=== PATIENT | female | born 1990 | race Caucasian/White ===

== ENCOUNTER 2021-03-26 13:55 | Outpatient (CLI) | payer OTHER, SELFPAY ==
[2021-03-26 14:40] LABS: Basophils Percent Auto 0.5 % (0.2-1.2); Hematocrit 34.5 % (37.0-47.0); Hemoglobin 11.7 g/dL (12.0-15.0); Immature Granulocyte Absolute 0.02 K/mm3 (0.00-0.031); Immature Granulocyte Percent A 0.5 % (0-0.5); Lymphocytes Absolute Auto 1.01 K/mm3 (0.9-3.2); Lymphocytes Percent Auto 25.3 % (18.3-44.2); Mean Corpuscular HGB Conc 33.9 g/dl (32-36); Mean Corpuscular Hemoglobin 30.4 pg (26-34); Mean Corpuscular Volume 89.6 fl (80-100); Mean Platelet Volume 9.1 fl (7.4-10.4); Monocytes Absolute Auto 0.4 K/mm3 (0.1-0.6); Neutrophils Absolute Auto 2.5 K/mm3 (1.3-6.7); Neutrophils Percent Auto 63.7 % (45.5-73.1); Platelet Count Result 204 k/mm3 (150-375); Red Blood Count 3.85 M/mm3 (4.2-5.4); Red Cell Distribution Width 13.4 % (11.5-14.5)
[2021-03-26 14:49] LABS: Add Urine Microscopic? YES; Appearance Urine Clear (Clear); Bilirubin Urine Negative (Negative); Blood Urine Negative (Negative); Color Urine Yellow (Yellow); Glucose Urine UA Negative (Negative); Ketones Urine Negative (Negative); Leukocyte Esterase Ur 3+ LEU/UL (NEGATIVE); Mucus Urine Few /lpf; Nitrate Urine Negative (Negative); Protein Urine 1+ mg/dL (Negative); Specific Grav Ur 1.027 (1.001-1.035); Squamous Epithelial Cell Urine Many /hpf (Few)
[2021-03-26 15:42] LABS: Hepatitis B Surface Antigen Negative (Negative); Rubella IgG Antibody 12.5 IU/ML
[2021-03-26 15:57] LABS: Hepatitis C Virus Antibody Negative (Negative)
== END 2021-03-26 13:56 | disposition home or self-care (01) ==
PROVIDERS: Visit Provider Obstetrics & Gynecology
DX: Z34.90 Encounter for supervision of normal pregnancy, unspecified, unspecified trimester (principal); Z3A.00 Weeks of gestation of pregnancy not specified
CPT/HCPCS: 36415; 81001; 84443; 85025; 86762; 86803; 87086; 87340

== ENCOUNTER 2021-07-05 10:32 | Outpatient (RCR) | payer OTHER, SELFPAY ==
[2021-07-02 09:44] LABS: Basophils Percent Auto 0.3 % (0.2-1.2); Eosinophils Absolute Auto 0.1 K/mm3 (0-0.3); Eosinophils Percent Auto 0.9 % (0-4.4); Hematocrit 31.8 % (37.0-47.0); Hemoglobin 10.6 g/dL (12.0-15.0); Immature Granulocyte Absolute 0.09 K/mm3 (0.00-0.031); Immature Granulocyte Percent A 1.1 % (0-0.5); Lymphocytes Absolute Auto 1.05 K/mm3 (0.9-3.2); Lymphocytes Percent Auto 13.2 % (18.3-44.2); Mean Corpuscular HGB Conc 33.3 g/dl (32-36); Mean Corpuscular Hemoglobin 30.7 pg (26-34); Mean Corpuscular Volume 92.2 fl (80-100); Mean Platelet Volume 9.1 fl (7.4-10.4); Monocytes Absolute Auto 0.4 K/mm3 (0.1-0.6); Monocytes Percent Auto 4.9 % (2.6-8.5); Neutrophils Absolute Auto 6.4 K/mm3 (1.3-6.7); Neutrophils Percent Auto 79.6 % (45.5-73.1); Platelet Count Result 199 k/mm3 (150-375); Red Blood Count 3.45 M/mm3 (4.2-5.4)
[2021-07-02 10:01] LABS: Glucose 1 Hour PP 50gm Dose 156 mg/dL
[2021-07-05] MEDS: RHO(D) IMMUNE GLOBULIN 300 MCG/2 ML SYRINGE IM (07:33)
== END 2021-09-30 23:59 | disposition home or self-care (01) ==
LOC: ANHLAB 10:32
PROVIDERS: Visit Provider Obstetrics & Gynecology
DX: Z29.13 Encounter for prophylactic Rho(D) immune globulin (principal); O36.0190 Maternal care for anti-D [Rh] antibodies, unspecified trimester, not applicable or unspecified; Z3A.00 Weeks of gestation of pregnancy not specified
CPT/HCPCS: 36415; 82947; 85025; 85461; 90384; 96372; J2790

== ENCOUNTER 2021-07-08 07:40 | Outpatient (CLI) | payer OTHER, SELFPAY ==
[2021-07-08 08:14] LABS: Glucose Fasting Gestational 85 mg/dL (>/=95)
[2021-07-08 09:37] LABS: Glucose 1 Hour Gest 136 mg/dL (>/=180)
[2021-07-08 11:46] LABS: Glucose 3 Hour Gest 90 mg/dL (>/=140)
[2021-07-08 11:46] LABS: Glucose 2 Hour Gest 108 mg/dL (>/= 155)
== END 2021-07-08 07:41 | disposition home or self-care (01) ==
LOC: ANHLAB 07:42
PROVIDERS: Visit Provider Obstetrics & Gynecology
DX: O99.810 Abnormal glucose complicating pregnancy (principal); Z3A.00 Weeks of gestation of pregnancy not specified
CPT/HCPCS: 36415; 82951; 82952

== ENCOUNTER 2021-08-02 09:29 | Outpatient (CLI) | payer OTHER, SELFPAY ==
[2021-08-02 09:45] LABS: Basophils Absolute Auto 0.02 K/mm3 (0.00-0.10); Basophils Percent Auto 0.3 % (0.0-1.0); Eosinophils Absolute Auto 0.06 K/mm3 (0.02-0.50); Eosinophils Percent Auto 0.8 % (1.0-6.0); Hematocrit 33.1 % (35.0-49.0); Hemoglobin 11.1 g/dL (12.0-15.0); Immature Granulocyte Percent A 1.4 % (0.0-0.0); Lymphocytes Absolute Auto 0.98 K/mm3 (1.10-4.50); Lymphocytes Percent Auto 13.9 % (18.0-42.0); Mean Corpuscular HGB Conc 33.5 g/dL (32.0-36.0); Mean Corpuscular Hemoglobin 31.2 pg (27.0-31.0); Mean Platelet Volume 9.4 fl (9.2-11.8); Monocytes Percent Auto 5.7 % (2.0-11.0); Neutrophils Absolute Auto 5.5 K/mm3 (1.7-7.2); Neutrophils Percent Auto 77.9 % (50.0-70.0); Platelet Count Result 183 K/mm3 (150-420); Red Blood Count 3.56 M/mm3 (4.20-5.40); Red Cell Distribution Width 13.7 % (11.6-14.4); White Blood Count 7.1 K/mm3 (4.8-10.8)
[2021-08-02 10:52] LABS: HIV 1 P24 AG Negative (Negative); HIV 1/2 AB Negative (Negative)
[2021-08-05 14:51] LABS: RPR Screen Non-Reactive (Non-Reactive)
== END 2021-08-02 09:30 | disposition home or self-care (01) ==
LOC: CHSLAB 09:32
PROVIDERS: PCP Obstetrics & Gynecology; Visit Provider Obstetrics & Gynecology
DX: Z34.90 Encounter for supervision of normal pregnancy, unspecified, unspecified trimester (principal)
CPT/HCPCS: 36415; 85025; 86592; 86703

== ENCOUNTER 2021-09-11 23:20 | Inpatient (IN) | payer OTHER, SELFPAY ==
[2021-09-12] VITALS (105 sets, daily range): BP systolic 99–150; BP diastolic 53–97; PULSE 44–91; RESP 16–18; TEMP 36.3–36.9; O2SAT 80–100; BMI 26.7
[2021-09-12 00:48] LABS: Basophils Percent Auto 0.4 % (0.2-1.2); Eosinophils Absolute Auto 0.1 K/mm3 (0-0.3); Eosinophils Percent Auto 0.7 % (0-4.4); Hematocrit 34.2 % (37.0-47.0); Hemoglobin 11.2 g/dL (12.0-15.0); Immature Granulocyte Percent A 1.3 % (0-0.5); Lymphocytes Absolute Auto 1.38 K/mm3 (0.9-3.2); Lymphocytes Percent Auto 18.4 % (18.3-44.2); Mean Corpuscular HGB Conc 32.7 g/dl (32-36); Mean Corpuscular Hemoglobin 30.4 pg (26-34); Mean Corpuscular Volume 92.7 fl (80-100); Mean Platelet Volume 10.2 fl (7.4-10.4); Monocytes Absolute Auto 0.4 K/mm3 (0.1-0.6); Monocytes Percent Auto 5.7 % (2.6-8.5); Neutrophils Absolute Auto 5.5 K/mm3 (1.3-6.7); Neutrophils Percent Auto 73.5 % (45.5-73.1); Platelet Count Result 180 k/mm3 (150-375); Red Blood Count 3.69 M/mm3 (4.2-5.4); Red Cell Distribution Width 14.1 % (11.5-14.5); White Blood Count 7.5 K/mm3 (4.5-10.0)
--- NOTE | 2021-09-12 00:49 | LDADM ---
This patient, Gabby Bazzi, was admitted to Labor/Delivery/Recovery 105 on 09/11/21 at 23:20. Plans for labor, pain management and were discussed with patient. Patient/family oriented to hospital policies and general routines including ID bracelet, bed and alarms, visiting hours, pain management, procedures, bathroom and other care routines, personal items, smoking policy, room service/diet and guest tray routines, security routines, and visiting hours. Patient/Family are encouraged to report perceived risks to care and to ask questions if they do not understand what they are told or what they should do. See OBIX for further documentation.
[2021-09-12] MEDS: OXYTOCIN 30 UNITS/NS 500 ML 30 UNITS/500 ML BAG IV CONT (01:17)
[2021-09-12] MEDS: LACTATED RINGERS 1,000 ML 125 ML IV CONT ×2 (01:18→05:24)
--- NOTE | 2021-09-12 03:33 | WPDANESEPP ---
Anes - Eval Pre Procedure Procedure: labor epidural Date/Time: 09/12/21 03:33 Surgeon: ryan Preop Diagnosis: pain during labor Pre Op Diagnosis: SROM Patient Data Age: 31 Gender: F Height: 1.7 m Weight: 77.5 kg Last Vital Signs Pulse 57 L 09/12/21 03:30 BP 118/78 09/12/21 03:30 O2 Del Method Room Air 09/12/21 00:48 Allergies Allergy/AdvReac Type Severity Reaction Status Date / Time No Known Allergies Allergy Verified 09/10/21 10:22 Home Medications Medication Instructions Recorded Confirmed Type cholecalciferol (vitamin D3) 25 25 mcg PO DAILY 09/05/21 09/05/21 History mcg (1,000 unit) capsule docusate sodium 100 mg capsule 100 mg PO DAILY 09/05/21 09/05/21 History iron,carbonyl 65 mg-vitamin C 125 1 tablet PO HS 09/05/21 09/05/21 History mg tablet,delayed release (Vitron-C) prenat.vits,norman,qmc-ivni-doirm 1 tablet PO HS 09/05/21 09/05/21 History Laboratory Tests 09/12/21 09/12/21 00:12 00:12 WBC 7.5 K/mm3 K/mm3 (4.5-10.0) RBC 3.69 M/mm3 L M/mm3 (4.2-5.4) Hgb 11.2 g/dL L g/dL (12.0-15.0) Hct 34.2 % L % (37.0-47.0) MCV 92.7 fl fl (80-100) MCH 30.4 pg pg (26-34) MCHC 32.7 g/dl g/dl (32-36) RDW 14.1 % % (11.5-14.5) Plt Count 180 k/mm3 k/mm3 (150-375) MPV 10.2 fl fl (7.4-10.4) Immature Gran % (Auto) 1.3 % H % (0-0.5) Neut % (Auto) 73.5 % H % (45.5-73.1) Lymph % (Auto) 18.4 % % (18.3-44.2) [place] % (Auto) 5.7 % % (2.6-8.5) Eos % (Auto) 0.7 % % (0-4.4) Baso % (Auto) 0.4 % % (0.2-1.2) Lymph # (Auto) 1.38 K/mm3 K/mm3 (0.9-3.2) [place] # (Auto) 0.4 K/mm3 K/mm3 (0.1-0.6) Eos # (Auto) 0.1 K/mm3 K/mm3 (0-0.3) Baso # (Auto) 0.0 K/mm3 K/mm3 (0.0-0.1) Abs Immat Gran (auto) 0.10 K/mm3 H K/mm3 (0.00-0.031) Absolute Neuts (auto) 5.5 K/mm3 K/mm3 (1.3-6.7) Absolute Nucleated RBC 0.0 K/mm3 K/mm3 (0.0-0.012) Nucleated RBC % 0.0 % % (0.0-0.2) RPR Pending Patient hx anesthesia problems: none Family hx anesthesia problems: none Results Review: All pre-operative results and documents have been reviewed as part of the pre-operative evaluation. [facility] Past Medical History Medical History Vaginal delivery Surgical History Surgical History [place] teeth removed Family History Family History Mother Diabetes mellitus Hypertension Father Hypertension Sibling Hypertension Social History Social History Smoking status: Never smoker Alcohol intake: current Substance use: never Spiritual care concerns: No Exam Day of Procedure 09/12/21 03:33
[2021-09-12] MEDS: AMPICILLIN 2 GM/NS 100 ML 2 GM/100 ML BAG IVPB (04:50)
[2021-09-12 07:25] LABS: Rapid Plasma Reagin Non-Reactive (NonReactive)
[2021-09-12] MEDS: ONDANSETRON INJ 4 MG/2 ML VIAL IV PUSH (08:08)
[2021-09-12] MEDS: OXYTOCIN 30 UNITS/NS 500 ML 30 UNITS/500 ML BAG 125 UNITS IV CONT (09:44)
--- NOTE | 2021-09-12 10:17 | PM.IMHP ---
H&P: HPI History of Present Illness Date/Time: 09/12/21 10:17 Chief Complaint: Pt at 39 weeks based on EDC of 09/18/2021 by LMP 12/12/20 consistent with 13 week ultrasound. PNC uncomplicated. She presented with complaints of questionable leaking starting at 10:00 a.m. on 09/11 light leaking. It continued throughout the day and she presented to labor and delivery the evening of 727 and was confirmed rupture membranes. She denied any fevers denies any regular contractions. Patient was admitted for premature rupture of membranes. Contractions irregular. Labs reviewed. GBS neg. Review of Systems Review of Systems: All systems reviewed & are unremarkable except as noted in HPI and below Constitutional: Constitutional: Reports no additional constitutional complaints and Denies headache(s) Eyes: Eyes: Denies spots in vision ENT: Reports system reviewed and no additional complaints, except as documented and Denies headache(s) Cardiovascular: Cardiovascular: Denies chest pain and Denies dyspnea Respiratory: Respiratory: Denies dyspnea Gastrointestinal: Gastrointestinal: Reports no additional gastrointestinal complaints Genitourinary: Genitourinary: Reports amenorrhea Musculoskeletal: Musculoskeletal: Reports no additional musculoskeletal complaints Integumentary/Breasts: Skin/Breast: Denies breast mass and Denies rash Neurologic: Denies headache(s) Psychiatric: Psychiatric: Reports no additional psychiatric complaints [facility] Past Medical History Medical History (Updated 09/13/21 @ 07:29 by Peter Driscoll MD) Vaginal delivery Surgical History Surgical History [place] teeth removed Family History Family History Mother Diabetes mellitus Hypertension Father Hypertension Sibling Hypertension Social History Social History Smoking status: Never smoker Alcohol intake: current Substance use: never Spiritual care concerns: No Meds Home Medications and Allergies Home Medications Medication Instructions Recorded Confirmed Type cholecalciferol (vitamin D3) 25 25 mcg PO DAILY 09/05/21 09/05/21 History mcg (1,000 unit) capsule docusate sodium 100 mg capsule 100 mg PO DAILY 09/05/21 09/05/21 History iron,carbonyl 65 mg-vitamin C 125 1 tablet PO HS 09/05/21 09/05/21 History mg tablet,delayed release (Vitron-C) prenat.vits,norman,vql-vyqx-wcgeg 1 tablet PO 09/05/21 09/05/21 History Allergies Allergy/AdvReac Type Severity Reaction Status Date / Time No Known Allergies Allergy Verified 09/10/21 10:22 Vital Signs Vital Signs - 24 hr 09/12/21 00:48 09/12/21 01:52 09/12/21 02:00 Temperature 97.5 F L Pulse Rate 70 72 Blood Pressure 111/68 112/76 Pulse Oximetry Oxygen Delivery Room Air 09/12/21 02:15 09/12/21 02:30 09/12/21 02:45 Temperature Pulse Rate 72 66 61 Blood Pressure 115/73 107/60 122/67 Pulse Oximetry Oxygen Delivery 09/12/21 03:01 09/12/21 03:15 09/12/21 03:30 Temperature Pulse Rate 65 55 L 57 L Blood Pressure 101/55 L 107/67 118/78 Pulse Oximetry Oxygen Delivery 09/12/21 03:45 09/12/21 04:01 09/12/21 04:29 Temperature Pulse Rate 66 70 Blood Pressure 121/71 114/74 Pulse Oximetry 99 Oxygen Delivery 09/12/21 04:32 09/12/21 04:34 09/12/21 04:36 Temperature Pulse Rate 72 77 Blood Pressure 115/97 H 150/89 H Pulse Oximetry 100 Oxygen Delivery 09/12/21 04:38 09/12/21 04:39 09/12/21 04:40 Temperature Pulse Rate 89 72 Blood Pressure 129/86 126/76 Pulse Oximetry 100 Oxygen Delivery 09/12/21 04:43 09/12/21 04:44 09/12/21 04:45 Temperature Pulse Rate 66 73 69 Blood Pressure 126/72 126/73 116/72 Pulse Oximetry 100 Oxygen Delivery 09/12/21 04:46 09/12/21 04:48 09/12/21 04:49 Temperature
--- NOTE | 2021-09-12 10:18 | PM.OBPRVD ---
OB - Delivery Note Procedure Delivery date: 09/12/21 Procedure: Spontaneous vaginal delivery Events: Other ( premature rupture of membranes) Delivery augmentation: Pitocin Delivery monitor: External FHT Route of delivery: Laceration Description: Perineal - 2nd Degree Delivery repair: vicryl ( 3 0 Vicryl) Specimen: No Quantitative Blood Loss (ml): 200 Anesthesia type: Local Disposition: Floor Narrative: Patient admitted to Labor and delivery after confirmation of rupture of membranes. She had Pitocin augmentation started. She progressed into active labor. She had an uncomplicated vaginal delivery. Baby Date of : 09/12/21 Time of : 09:04 Weeks of gestation at delivery: 39 gender: Female Weight (pounds): 7 Weight (ounces): 14 presentation: vertex position: Right Occiput Anterior Placenta delivery description: Spontaneous Cord Vessel Description: 3 Vessels and Other ( short cord) score one minute: 9 score five minutes: 9 AMG Delivery Billing Delivery Delivery: Delivery Charge
[2021-09-12] MEDS: WITCH HAZEL 40 PADS 1 PAD TOPICAL (11:52)
[2021-09-12] MEDS: BENZOCAINE 20% AER SPR (*SP) 56 GM CAN 1 SPRAY TOPICAL (11:53)
--- NOTE | 2021-09-12 12:10 | OBPPTRN ---
Patient transferred to post room #281 via wheelchair. Support person present. Oriented to unit, room, information board, rooming in, admission packet and security measures. Patient verbalizes understanding.
[2021-09-12] MEDS: IBUPROFEN 600 MG TABLET PO ×2 (16:19→22:50)
[2021-09-12] MEDS: DOCUSATE SODIUM 100 MG CAPSULE PO (16:20)
[2021-09-13 04:55] LABS: Hematocrit 30.8 % (37.0-47.0); Hemoglobin 10.2 g/dL (12.0-15.0)
--- NOTE | 2021-09-13 07:52 | PM.OBPNVD ---
OB - PN: Subj Subjective Date/time seen: 09/13/21 07:52 Patient comments: pain well controlled, tolerating diet and other (Decreasing lochia.) baby status: doing well Narrative: She is supplementing OB - PN: Obj Data Labs CBC & Chem 7: 09/13/21 04:03 Labs: Laboratory Results - last 24 hr 09/12/21 09/13/21 09/13/21 00:12 04:03 04:03 Hgb 10.2 L Hct 30.8 L Blood Type A Negative Antigen Identification Cancelled ALECIA, IgG Interpret Not Performed ALECIA, Poly Interpret Negative ALECIA, Complement Interp Not Performed OB - PN A/P Plan day: 1 Plan: routine care Comments: Patient doing well. Normal exam. She request discharge. Discharge to home when baby ready. Discharge precautions discussed. Time Spent With Patient Time: Total time spent is greater than 50% in coordination of care (as documented) at patient's floor/unit and/or counseling patient: Exam Psych: Affect: normal affect Other: Abd: fundus firm below umbilicus, nontender Perineum: healing Ext: nontender
[2021-09-13 08:15] VITALS: BP 113/78; PULSE 69; RESP 18; TEMP 37.4; O2SAT 97
[2021-09-13] MEDS: MULTIVIT/MIN/PREN/FOL AC/IRON TABLET 1 TAB PO (09:38)
[2021-09-13] MEDS: RHO(D) IMMUNE GLOBULIN 300 MCG/2 ML SYRINGE IM (10:06)
--- NOTE | 2021-09-13 10:58 | PC.NURSE ---
[id number] Introductions were made, then consulted with patient to assess needs related to . Mother led the conversation with her?plans to feed?her infant and the?experience so far. Mother has experience with her first child and states both infants had some difficulties in the first few days but mother is confident to work through the challenges. Resources provided for inpatient and outpatient services using a resource guide and mom/baby guide. Mother verbalizes she is able to independently latch with appropriate positioning/alignment. She denies any nipple discomfort and is responsively . Infant is currently meeting outcomes for weight, output, jaundice and feeding frequencies of 8-12 times in 24 hours. Mother declines any additional assistance/education at this time but will call for assistance if her doesn?t latch or there is discomfort with latching. Mother voiced understanding of information shared and mom and baby guide reviewed for additional resource information . Reported to the primary RN.
--- NOTE | 2021-09-13 12:34 | PC.NURSE ---
[id number] Consulted with patient to assess needs related to and mother having difficulty latching infant to the left breast. Mother is concerned about the tongue being tight. Infant is able to extend the tongue over her gum line. Reviewed working with infant, breast, nipples and how to protect the nipples with an optimal deep latch and good positioning. Mother encouraged to undress infant and use the benefits of skin to skin and responding to feeding cues. Reviewed positioning and alignment, supporting breast, off-centered (asymmetrical latch) and leading with the chin with big open wide gape. Infant latched optimally to the left breast in cross cradle position after a few attempts in cross cradle, then football, then back to cross cradle position. Education given to parents of how to visualize suck/swallow ratios and drinking at the breast. Infant was able to maintain latch without discomfort to mother. Nipple care reviewed with optimal latch and good positioning and encouraged hand expression and nipple stimulation to protect the nipple with a good deep latch. Resources used to facilitate learning were used from the mom and baby guide. Mother voiced understanding of the education shared, calling for assistance if the does not latch or if there is discomfort with . Reported to the primary RN.
--- NOTE | 2021-09-13 12:59 | WPDANLDPN2 ---
Anes-Prog Note L&D Date/Time: 09/13/21 12:59 Comfortable throughout: labor and delivery Neuraxial method: epidural Epidural/Spinal procedure site: clean & non-tender Neuro status: Neuro function grossly intact. Cardiovascular status: normal Respiratory status: normal Airway patency: baseline Mental status: baseline Post-Op hydration status: normal Vital Signs: Last Vital Signs Temp 37.4 C 09/13/21 08:15 Pulse 69 09/13/21 08:15 Resp 18 09/13/21 08:15 BP 113/78 09/13/21 08:15 Pulse Ox 97 09/13/21 08:15 O2 Del Method Room Air 09/12/21 16:20 Pain score (VAS): 02/25 I/O: Intake & Output 09/12/21 09/13/21 09/13/21 23:59 07:59 15:59 Intake Total 500 300 Balance 500 300 Post-procedural complaints: none Patient feedback: Patient satisfied with anesthetic care.
[2021-09-14 07:49] VITALS: BP 109/80; PULSE 74; RESP 16; TEMP 37; O2SAT 99
--- NOTE | 2021-10-14 21:16 | PM.OBDSVD ---
DS: Admitting Diagnosis Discharge Date 09/13/21 Admitting Diagnosis Premature rupture of membranes DS: Discharge Diagnosis Discharge Diagnosis (1) Delivery normal: Code(s): O80 - Encounter for full-term uncomplicated delivery Status: Acute OB - DS: Summary Hospital Course Hospital Course: Patient was admitted after confirmation of rupture of membranes. She had pitocin augmentation. She had an uncomplicated vaginal delivery with a second degree laceration repaired. she did well. She requested discharge home on day one. Baby was doing well. OB Procedures : Ultrasound OB Procedures Intrapartum: Spontaneous Vag Delivery OB Procedures: : None Peripartum Data Delivery Method: Natural Vaginal Laceration Description: Perineal - 2nd Degree complications: none Time Spent with Patient Time attestation: Total time spent providing and/or coordinating discharge services: Discharge Plan Discharge Attending physician on discharge: Peter Driscoll Consulting providers: Dory Santoyo ; Huyen Moses Discharging Clinician: Peter Driscoll Anticipated Discharge Date/Time: 09/13/21 07:54 Patient Disposition: Home, Self-Care Activity: may shower and pelvic rest Diet: regular Discharge Instructions: Pelvic rest for 4-6 weeks. May take over the counter Ibuprofen or Tylenol for pain. Call if saturating more than a pad an hour, leg redness, pain and swelling, temperature>100.4. No strenuous activity. Education: Mom and Baby Guide Given to: Mother Follow-Up: Call your delivering provider's office for an appointment to be seen in: 2 Weeks Mom and baby should come to the [facility] for the follow-up appointment. Appointment Date/Time: September 14, 2021 at 8:00 am What to expect at your follow-up visit: Physical Assessment Call [phone] if you are unable to keep your appointment time. BREAST CARE: * Wear a snug supportive bra. * For engorgement discomfort: Breast Feeding: * Apply warm moist washcloths * Express milk as needed to relieve engorgement * Wear loose clothing * For sore nipples: * Identify correct latch-on * Apply warm moist washcloths before and after nursing * Air dry nipples after nursing * May apply Lansin[place] cream to nipples PERINEAL CARE: * Until bleeding stops, use your avery bottle after urinating * Change your pad frequently throughout the day * You may take sitz baths several times a day (fill your bathtub with warm water and soak for 20 minutes.) Do NOT bathe in the water * No tub baths until seen by your physician - You may shower ACTIVITY: * Rest as much as possible. * Do not exercise or lift anything heavier than your baby (such as laundry or other children.) * Avoid stairs or driving as much as possible. * Do not put anything into the vagina. No douching, tampons, or sexual activity until seen by physician. NOTIFY PHYSICIAN IF YOU HAVE ANY QUESTIONS OR IF ANY OF THE FOLLOWING SYMPTOMS OCCUR: * If your perineum becomes red, swollen, or more painful than what you have experienced in the hospital. * If your vaginal bleeding becomes foul smelling. * If your vaginal bleeding becomes more heavy than a period or if your bleeding changes from pink to bright red. However, you may pass an occasional walnut-sized clot once or twice for the first week . * If you experience a sharp, shooting pain in you calves. * If you discover a hard, reddened area on your breast or if you experience flu-like symptoms. DIET: * Eat regular, well-balanced meals. * Drink plenty of fluids daily. If , drink to thirst. Patient Instructions: Antibiotic Form Stand Alone Forms: General Discharge Information Follow-up/Referrals: Peter Driscoll MD [Physician] - Call for Appointment (Follow up in 2-3 weeks) Discharge Medications: Con
== END 2021-09-13 13:25 | disposition home or self-care (01) | DRG 807 ==
LOC: ANHLDR 09-12 08:13 → ANHOB2 09-12 12:24
PROVIDERS: Admitting Provider Obstetrics & Gynecology; Visit Provider Obstetrics & Gynecology
DX: O42.92 Full-term premature rupture of membranes, unspecified as to length of time between rupture and onset of labor (principal); Z37.0 Single live birth; Z3A.39 39 weeks gestation of pregnancy; O76 Abnormality in fetal heart rate and rhythm complicating labor and delivery; O70.1 Second degree perineal laceration during delivery; O69.3XX0 Labor and delivery complicated by short cord, not applicable or unspecified
CPT/HCPCS: 36415; 84112; 85014; 85018; 85025; 85461; 86592; 86850; 86880; 86900; 86901; 90384; A9270; J0290; J2405; J2590; J2790; J2795; J7120

== ENCOUNTER 2025-01-19 10:18 | Emergency (ER) | payer OTHER, SELFPAY ==
--- NOTE | ~2025-01-19 | XR_ITS ---
EXAMINATION: XR chest 2V 01/19/2025 10:51 INDICATION: Chest pain PROCEDURE: 2 view chest COMPARISON: No prior studies for comparison. FINDINGS: There is right lower lobe pneumonia. The cardiomediastinal silhouette is within normal limits. There are no pleural effusions. There is no pneumothorax suspected. IMPRESSION: 1: Right lower lobe pneumonia. Reviewed, dictated and finalized at location I. ER MACHINE OPERATOR
--- OUTSIDE RECORDS SUMMARY | 2025-01-19 09:30 | XMS_ITS | Encounter Summary ---
Author Organization [facility] Healthcare Address [address] [place] [id number] Care Team Providers Care Glass Cutter Helper Name Role Phone Unknown, Notinfile Primary Care Provider Unavail able Reason for Visit * Reason Comments heart rate High resting heart r ate for three days. Denies cardiac hx. Feels like a band around chest. Covid/Flu at home yesterday was negative. Encounter Details Date Type Department Care Team (Late st Contact Info) Description 01/19/2025 9:30 AM HANDBAG FRAMES INSPECTOR Office Visit [facility] at [address] [phone] Amy Stubbs NP [address] [facility] [address] [place], [place] [id number] Increased heart rate (Primary Dx); Tightness in chest Social History Tobacco Use Types Packs/Day Years Used Date Smoking Tobacco: Never Assessed Comments Unknown Sex and Gender Information Value Date Recorded Sex Assigned at Not on file Legal Sex Female 9:39 PM HANDBAG FRAMES INSPECTOR Gender Identity Not on file Sexual Orientation Not on file documented as of this encounter Last Filed Vital Signs Vital Sign Reading Time Taken Comments Blood Pressure 131/85 01/19/2025 9:27 AM HANDBAG FRAMES INSPECTOR Pulse 91 01/19/2025 9:27 AM HANDBAG FRAMES INSPECTOR Temperature 36.8 C (98.3 F) 01/19/2025 9:27 AM HANDBAG FRAMES INSPECTOR Respiratory Rate 20 01/19/2025 9:27 AM HANDBAG FRAMES INSPECTOR Oxygen Saturation 99% 01/19/2025 9:27 AM HANDBAG FRAMES INSPECTOR Inhaled Oxygen Concentration - - Weight 61.4 kg (135 lb 4.8 oz) 01/19/2025 9:27 A M HANDBAG FRAMES INSPECTOR Height 167.6 cm (5' 6) 01/19/2025 9:27 AM HANDBAG FRAMES INSPECTOR Body Mass Index 21.84 01/19/2025 9:27 AM HANDBAG FRAMES INSPECTOR documented in this encounter Progress Notes * Amy Stubbs, RESERVOIR ENGINEER - 01/19/2025 9:30 AM CST Images from the original note were not included. Subjective/Objective Patient ID: Gabby Bazzi is a 34 y.o. female. This patient has verbally consented to recording this visit in order to utilize AI technology in generating this note. Chief Complaint heart rate (High resting heart rate for three days. Denies cardiac hx. Feels like a band around chest. Covid/Flu at home yesterday was negative. ) History of Present Illness Gabby Bazzi is a 34 year old female who presents with chest pain and increased heart rate. She began experiencing body aches on Thursday, followed by chest pain and tightness on Thursday night into Thursday. The chest pain is described as a dullness and tightness, feeling like a band around herchest. Her heart rate has been elevated, ranging from the 80s to 90s, which is higher than her usual 60 to 70 beats per minute. She feels tearful and scared due to these symptoms and has been in bed for most of the past three days, feeling exhausted after being out of bed for one to two hours. No shortness of breath or dizziness is reported, and there have been no changes in oxygen levels. She has no personal history of cardiac issues and no family history of cardiac issues. She has not had any recent surgeries and is not a smoker. She has never had a blood clot. A home COVID test was negative, and she received a flu shot in October. Review of Systems All other systems reviewed and are negative. Physical Exam CARDIOVASCULAR: Normal sinus rhythm Physical Exam Vitals reviewed. Constitutional: General: She is not in acute distress. Appearance: Normal appearance. She is not ill-appearing. HENT: Head: Normocephalic. Mouth/Throat: Lips: [place]. Cardiovascular: Rate and Rhythm: Tachycardia present. Comments: 91-104 heart rate on exam Pulmonary: Effort: Pulmonary effort is normal. Breath sounds: Normal breath sounds. Skin: General: Skin is warm. Neurological: Mental Status: She is alert and oriented to person, place, and time. Psychiatric: Mood and Affect: Mood normal. Vitals: 01/19/25 0927 BP: 131/85 Pulse: 91 Resp: 20 Temp: 36.8 ??C (98.3 ??F) TempSrc: Oral SpO2: 99% Weight: 61.4 kg (135 lb 4.8 oz) Height: 167.6 cm (5' 6) No past medical history on file. Current Outpatient Medications: Blisovi 24 Fe 1 mg-20 mcg (24)/75 mg (4) per tablet, , Disp: , Rfl: No Known Allergies Social History Tobacco Use Smoking status: None Smokeless tobacco: None Substance and Sexual Activity Drug use: None Sexual activity: None Alcohol Use: Not on file History reviewed. No pertinent surgical history. Assessment/Plan 1. Increased heart rate (Primary) 2. Tightness in chest Results Assessment & Plan Chest tightness with tachycardia Intermittent chest tightness with tachycardia, differential includes cardiac etiology, pulmonary embolism, or viral infection. Recent negative COVID test and flu vaccination. Cardiac evaluation necessary to rule out significant pathology. - Ordered 12-lead EKG- Patient refused this (twice) in office and stated she would rather have thiscompleted in the ER if necessary. Patient is more concerned about a PE. - Patient declined EMS and states that she will drive herself to [place] [facility]. Education --ER immediately for further evaluation of chest tightness with tachycardia to rule out potential cardiac etiology versus PE. Disposition Treatment plan including expectations, follow up, and return precautions discussed with patient/parent, verbalizes understanding. Medication dosage, use, and potential adverse reactions discussed with patient/parent. Advised to follow up with PCP if symptoms do not resolve as expected or sooner if condition worsens. Signs/symptoms warranting ER evaluation reviewed. Patient and/or guardian was given an opportunity to ask questions, questions answered. Amy Stubbs NP This office note has been partially dictated using Plan[employer] software, and as a result portions of the record may have been created with this software. Occasional wrong-word or '[id number]' substitutions may have occurred due to the inherent limitations of voice recognition software. Read the chartcarefully and recognize, using context, where substitutions have occurred. Cosigned by Juan Chong MD at 01/19/2025 10:20 AM HANDBAG FRAMES INSPECTOR BAG FRAMES INSPECTOR BAG FRAMES INSPECTOR documented in this encounter Plan of Treatment Not on file documented as of this encounter Visit Diagnoses Diagnosis Increased heart rate- Primary Unspecified tachycardia Tightness in chest Other chest pain documented in this encounter Historical Medications * This list may reflect changes made after this encounter. Medication Sig Dispense Quantity Refills Last Filled Start D ate End Date Blisovi 24 Fe 1 mg-20 mcg (24)/75 mg (4) per tablet 02/17/2024 added in this encounter Care Teams Glass Cutter Helper Relationship Specialty Start Date End Date Unknown, Notinfile PCP - General 01/19/25 documented as of this encounter
--- NOTE | 2025-01-19 10:20 | ECG_ITS ---
Test Date: 2025-01-19 10:24:43 Measurements Intervals [place] Rate: 92 P: 63 ND: 124 QRS: 42 QRSD: 88 T: 39 QT: 353 QTc: 438 Interpretive Statements SINUS RHYTHM CONSIDER RIGHT VENTRICULAR CONDUCTION DELAY BASELINE ARTIFACT- I, II, AVL, AVF BORDERLINE ECG No previous ECG available for comparison Electronically Signed On 01-19-2025 10:42:59 [facility] by Jairon Garcia D.O.
[2025-01-19 10:25] VITALS: BP 132/89; PULSE 96; RESP 16; TEMP 36.7; O2SAT 98
[2025-01-19 10:35] LABS: Hematocrit 38.6 % (37.0-47.0); Hemoglobin 13.0 g/dL (12.0-15.0); Immature Granulocyte Percent A 0.5 % (0-0.5); Lymphocytes Absolute Auto 0.73 K/mm3 (0.9-3.2); Mean Corpuscular HGB Conc 33.7 g/dl (32-36); Mean Corpuscular Hemoglobin 30.0 pg (26-34); Mean Corpuscular Volume 89.1 fl (80-100); Nucleated Red Blood Cells Absolute Auto 0.000 K/mm3 (0.0-0.012); Nucleated Red Blood Cells Perc 0.0 % (0.0-0.2); Platelet Count Result 174 k/mm3 (150-375); Red Blood Count 4.33 M/mm3 (4.2-5.4)
[2025-01-19 10:46] LABS: INR 1.0; Partial Thromboplastin Time 28.4 Seconds (22.3-36.8); Prothrombin Time 13.3 Seconds (11.1-14.7)
[2025-01-19 10:51] LABS: Alanine Aminotransferase 14 U/L (6-35); Albumin Level 4.5 g/dL (3.5-5.1); Alkaline Phosphatase 46 U/L (38-126); Anion Gap 5 mmol/L (4-12); Aspartate Amino Transferase 24 U/L (14-36); Bilirubin,Total 0.4 mg/dL (0.2-1.3); Blood Urea Nitrogen 5 mg/dL (7-17); Calcium 8.8 mg/dL (8.4-10.2); Carbon Dioxide 27 mmol/L (22-30); Chloride 106 mmol/L (98-107); Estimated CRCL calculation 93 ml/min; Estimated Glomerular Filt Rate > 60; Glucose 94 mg/dL (65-110); Lipase 83 U/L (23-300); Potassium 3.9 mmol/L (3.4-5.0); Sodium 138 mmol/L (137-145); Total Protein 7.9 g/dL (6.3-8.2)
[2025-01-19 10:58] LABS: Troponin I < 0.012 ng/mL (0.000-0.034)
[2025-01-19 10:59] LABS: White Blood Count 1.9 K/mm3 (4.5-10.0)
[2025-01-19 11:12] VITALS: O2SAT 100
[2025-01-19 11:13] VITALS: BP 135/90; PULSE 79; PULSE 80; RESP 12; O2SAT 100
[2025-01-19 11:16] LABS: Influenza A QL RT-PCR Negative (Negative); Influenza B QL RT-PCR Negative (Negative); RSV RNA, RT-PCR Negative (Negative); SARS-CoV-2 RNA PCR Negative (Negative)
--- OUTSIDE RECORDS SUMMARY | 2025-01-19 11:25 | XMS_ITS | Clinical Summary ---
Author Organization [facility] Address [address] [place] [address] Care Team Providers Care Seaming Inspector Name Role Phone Unavailable Primary Care Provider Unavailabl e Source Comments [facility],non-owned Affiliates and Associated Physician Practices is amultiple site organization consisting of ambulatory clinics and hospital sitesin [place], [place], [place] and [place]. This disclosure is being madepursuant to the Care Everywhere program and may not contain all information available regarding this patient. Last updated 17.[facility] Allergies No known active allergies Medications * Be aware that medications may not be up to date on this document. Alwaysverify current medications with the patient. No known medications Active Problems No known active problems Social History Tobacco Use Types Packs/Day Years Used Date Smoking Tobacco: Never Smokeless Tobacco: Never Alcohol Use Standard Drinks/Week Comments Not Currently 0 (1 standard drink = 0.6 oz pur e alcohol) Comments Unknown Sex and Gender Information Value Date Recorded Sex Assigned at Not on file Legal Sex Female 8:54 AM CDT Gender Identity Not on file Sexual Orientation Not on file Last Filed Vital Signs Vital Sign Reading Time Taken Comments Blood Pressure - - Pulse - - Temperature - - Respiratory Rate - - Oxygen Saturation - - Inhaled Oxygen Concentration - - Weight 63.5 kg (140 lb) 10/29/2021 8:48 AM CDT Height 170.2 cm (5' 7) 10/29/2021 8:48 AM CDT Body Mass Index 21.93 10/29/2021 8:48 AM CDT Plan of Treatment Health Maintenance Due Date Last Done Comments HIV SCREENING 2003 HEPATITIS C SCREENING 03/15/2006 DTAP/TDAP/TD VACCINES (1 - Tdap) 2007 HEPATITIS B VACCINE (1 of 3 - 19+ 3-dose series) 2007 PAP SMEAR 2009 HPV VACCINE (1 - 3-dose SCDM series) 2015 Cervical Cancer Screening 2018 PAP with HPV 2018 DEPRESSION SCREENING 02/17/2024 COVID-19 VACCINE (1 - 2024-2 6 season) 2024 INFLUENZA VACCINE (#1) 2024 ZOSTER VACCINE (1 of 2) 2038 HIB VACCINE Aged Out No longer eligi ble based on patient's age to complete this topic MENINGOCOCCAL (Group B) VACC INE SHARED DECISION-MAKING Aged Out No longer eligibl e based on patient's age to complete this topic MENINGOCOCCAL GROUPS A/C/Y/W VACCINE Aged Out No longer eligible b ased on patient's age to complete this topic PNEUMOCOCCAL VACCINE Aged Out No long er eligible based on patient's age to complete this topic Insurance [facility] Address: [address] [place] [address] [facility] Address: [address] [place] [address] [employer] [facility] Address: [address] [place] [address]
--- OUTSIDE RECORDS SUMMARY | 2025-01-19 11:25 | XMS_ITS | Clinical Summary ---
Author Organization [employer] [facility] Address [address] [place] [address] Phone Care Team Providers Care Hand Paint Mixer Name Role Phone Unavailable Primary Care Provider Unavailabl e Social History Tobacco Use Types Packs/Day Years Used Date Smoking Tobacco: Never Assessed Comments Unknown Sex and Gender Information Value Date Recorded Sex Assigned at Not on file Legal Sex Female 3:33 PM RAIL CREW MEMBER Gender Identity Not on file Sexual Orientation Not on file Plan of Treatment Health Maintenance Due Date Last Done Comments DTAP/TDAP/TD VACCINES (1 - Tdap) 2007 HEPATITIS B VACCINES (1 of 3 - 19+ 3-dose series) 02/2007 HPV/Cotest (21-29) 2009 CERVICAL CANCER SCREENING 2018 HPV/Cotest (30-65) 2018 PAP SMEAR 2018 INFLUENZA VACCINE (#1) 2024 HPV VACCINES (No Doses Required) Completed Insurance [employer] CHOICE POS II
--- OUTSIDE RECORDS SUMMARY | 2025-01-19 11:25 | XMS_ITS | Clinical Summary ---
Author Organization [address] [address] Care Team Providers Care Board Turner Name Role Phone Unknown, Notinfile Primary Care Provider Unavail able Allergies No known active allergies Medications Blisovi 24 Fe 1 mg-20 mcg (24)/75 mg (4) per tablet 02/17/2024 A ctive Active Problems No known active problems Encounters Date Type Department Care Team Description 01/19/2025 9:30 AM CARROT GRADER INSPECTOR Office Visit [facility] Convenient Care at [address] [address] Amy Stubbs NP Increased heart rate (Primary Dx); Tightness in chest from Last 3 Months Social History Tobacco Use Types Packs/Day Years Used Date Smoking Tobacco: Never Assessed Comments Unknown Sex and Gender Information Value Date Recorded Sex Assigned at Not on file Legal Sex Female 9:39 PM CARROT GRADER INSPECTOR Gender Identity Not on file Sexual Orientation Not on file Last Filed Vital Signs Vital Sign Reading Time Taken Comments Blood Pressure 131/85 01/19/2025 9:27 AM CARROT GRADER INSPECTOR Pulse 91 01/19/2025 9:27 AM CARROT GRADER INSPECTOR Temperature 36.8 C (98.3 F) 01/19/2025 9:27 AM CARROT GRADER INSPECTOR Respiratory Rate 20 01/19/2025 9:27 AM CARROT GRADER INSPECTOR Oxygen Saturation 99% 01/19/2025 9:27 AM CARROT GRADER INSPECTOR Inhaled Oxygen Concentration - - Weight 61.4 kg (135 lb 4.8 oz) 01/19/2025 9:27 A M CARROT GRADER INSPECTOR Height 167.6 cm (5' 6) 01/19/2025 9:27 AM CARROT GRADER INSPECTOR Body Mass Index 21.84 01/19/2025 9:27 AM CARROT GRADER INSPECTOR Plan of Treatment Health Maintenance Due Date Last Done Comments Cervical Cancer Screening 1988 Depression Screening 1988 Hepatitis C Screening 1988 Varicella Vaccines (1 of 2 - 13+ 2-dose series) 2001 Hepatitis B Screening 2006 Regular Well Visit/Exam 18-64 2006 HPV Vaccines (1 - 3-dose SCDM series) 2015 Covid-19 Vaccine ( season) 2024 03/14/2021, 05/19/2020, 04/29/2020 DTaP/Tdap/Td Vaccine (2 - Td or Tdap) 07/02/2031 07/01/2021 Influenza Vaccine Completed 11/04/2024, , 10/04/2020, Additional history exists Pneumococcal vaccine <65 Aged Out No longer eligible based on patient's age to complete this topic Insurance [facility] Address: [facility] [id number] [place] [address] Care Teams Board Turner Relationship Specialty Start Date End Date Unknown, Notinfile PCP - General 01/19/25
[2025-01-19] MEDS: AZITHROMYCIN 500 MG TABLET PO (11:52)
[2025-01-19] MEDS: cefTRIAXone 1 GM in SODIUM CHLORIDE 0.9% IV 50 ML 100 ML IVPB (11:53)
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
[2025-01-19 13:01] VITALS: BP 126/75; PULSE 91; RESP 18; O2SAT 100
== END 2025-01-19 13:03 | disposition home or self-care (01) ==
PROVIDERS: Emergency Provider Emergency Medicine
DX: J18.9 Pneumonia, unspecified organism (principal); D72.819 Decreased white blood cell count, unspecified; Z20.822 Contact with and (suspected) exposure to COVID-19
CPT/HCPCS: 36415; 71046; 80053; 83605; 83690; 84484; 85025; 85610; 85730; 87040; 87637; 93005; 96365; 99284; J0696

== ENCOUNTER 2025-02-15 11:00 | Outpatient (CLI) | payer OTHER, SELFPAY ==
--- NOTE | 2025-02-15 | CONSULT_PTH ---
PATIENT: Gabby Bazzi LOC: [facility] U#:[id number] AGE/SX: 34/F ROOM: RE02/15/[address]: Dagoberto Nelson MD : 1990 BED: DIS: 02/15/2025 SPEC #: [id number] RECD: 02/15/25 12:47 STATUS: NICHOLE REQ #: [id number] EDGARD: 02/15/25 00:[address]: Dagoberto Nelson DEPT: [facility] Consult RECD BY: Latha Li MLT ENTERED: 02/15/25 12:48 SP TYPE: Consult OTHR DR: TANK HOUSE SUPERVISOR PHYSICIAN Tissues: A - Peripheral Smear Procedures: Hematology Consult
--- OUTSIDE RECORDS SUMMARY | 2025-02-15 10:30 | XMS_ITS | Encounter Summary ---
Author Organization [facility] Address [address] [place] [address] Care Team Providers Care Biosecurity Officer Name Role Phone Unavailable Primary Care Provider Unavailabl e Encounter Details Date Type Department Care Team (Late st Contact Info) Description 02/15/2025 10:30 AM ENGINEER EXHAUSTER Office Visit [facility] Oncology and Hematology - [place] [address] [place] [address] Bong Park MD [address] [place] [address] Neutropenia, unspecified type (Primary Dx) Social History Tobacco Use Types Packs/Day Years Used Date Smoking Tobacco: Never Smokeless Tobacco: Never Alcohol Use Standard Drinks/Week Comments Yes 0 (1 standard drink = 0.6 oz pur e alcohol) Occasionally Comments Unknown Sex and Gender Information Value Date Recorded Sex Assigned at Not on file Legal Sex Female 3:33 PM ENGINEER EXHAUSTER Gender Identity Not on file Sexual Orientation Not on file documented as of this encounter Last Filed Vital Signs Vital Sign Reading Time Taken Comments Blood Pressure 132/86 02/15/2025 10:24 AM ENGINEER EXHAUSTER Pulse 79 02/15/2025 10:24 AM ENGINEER EXHAUSTER Temperature 36.4 C (97.6 F) 02/15/2025 10:24 AM ENGINEER EXHAUSTER Respiratory Rate 15 02/15/2025 10:24 AM ENGINEER EXHAUSTER Oxygen Saturation 98% 02/15/2025 10:24 AM ENGINEER EXHAUSTER Inhaled Oxygen Concentration - - Weight 62.1 kg (137 lb) 02/15/2025 10:24 AM ENGINEER EXHAUSTER Height 170.2 cm (5' 7) 02/15/2025 10:24 AM ENGINEER EXHAUSTER Body Mass Index 21.46 02/15/2025 10:24 AM ENGINEER EXHAUSTER documented in this encounter Functional Status * Encounter Vitals Question Answer Date of Assessment Author Pain Score Zero 02/15/2025 10:24 AM ENGINEER EXHAUSTER Chika Candelaria documented as of this encounter Plan of Treatment Upcoming Encounters Date Type Department Care Team (Late st Contact Info) Description 03/01/2025 4:30 PM ENGINEER EXHAUSTER Telephone Check Up [facility] Oncology and Hematology - [place] [address] [facility] [address] [place] [address] Dagoberto Nelson MD [address] [facility] [address] [place] [address] Scheduled Orders Name Type Priority Associated Diagnoses Orde r Schedule CBC WITH DIFFERENTIAL Lab Routine Neutropenia, unspecified type Ordered: 02/15/2025 IRON, TIBC, AND PERCENT SATURATION Lab Routine Neutropenia, unspecified type Ordered: 02/15/2025 FERRITIN Lab Routine Neutropenia, unspecified type Ordered: 02/15/2025 PERIPHERAL BLOOD SMEAR PATHOLOGY INTERP Lab Routine Neutropenia, unspecified type Ordered: 02/15/2025 VITAMIN B12 AND FOLATE Lab Routine Neutropenia, unspecified type Ordered: 02/15/2025 JOHNNY SCREEN W/REFLEX Lab Routine Neutropenia, unspecified type Ordered: 02/15/2025 documented as of this encounter Visit Diagnoses Diagnosis Neutropenia, unspecified type- Primary documented in this encounter
--- OUTSIDE RECORDS SUMMARY | 2025-02-15 11:18 | XMS_ITS | Clinical Summary ---
Author Organization [address] [address] Care Team Providers Care Curtain Cleaner Name Role Phone Unknown, Notinfile Primary Care Provider Unavail able Allergies No known active allergies Medications Blisovi 24 Fe 1 mg-20 mcg (24)/75 mg (4) per tablet 02/17/2024 A ctive Active Problems No known active problems Encounters Date Type Department Care Team Description 01/19/2025 9:30 AM LIBRARY CIRCULATION TECHNICIAN Office Visit [facility] Convenient Care at [address] [address] Amy Stubbs NP Increased heart rate (Primary Dx); Tightness in chest from Last 3 Months Social History Tobacco Use Types Packs/Day Years Used Date Smoking Tobacco: Never Assessed Comments Unknown Sex and Gender Information Value Date Recorded Sex Assigned at Not on file Legal Sex Female 9:39 PM LIBRARY CIRCULATION TECHNICIAN Gender Identity Not on file Sexual Orientation Not on file Last Filed Vital Signs Vital Sign Reading Time Taken Comments Blood Pressure 131/85 01/19/2025 9:27 AM LIBRARY CIRCULATION TECHNICIAN Pulse 91 01/19/2025 9:27 AM LIBRARY CIRCULATION TECHNICIAN Temperature 36.8 C (98.3 F) 01/19/2025 9:27 AM LIBRARY CIRCULATION TECHNICIAN Respiratory Rate 20 01/19/2025 9:27 AM LIBRARY CIRCULATION TECHNICIAN Oxygen Saturation 99% 01/19/2025 9:27 AM LIBRARY CIRCULATION TECHNICIAN Inhaled Oxygen Concentration - - Weight 61.4 kg (135 lb 4.8 oz) 01/19/2025 9:27 A M LIBRARY CIRCULATION TECHNICIAN Height 167.6 cm (5' 6) 01/19/2025 9:27 AM LIBRARY CIRCULATION TECHNICIAN Body Mass Index 21.84 01/19/2025 9:27 AM LIBRARY CIRCULATION TECHNICIAN Plan of Treatment Health Maintenance Due Date [...] age to complete this topic Insurance [facility] H[facility] Address: [facility] [id number] [place] [address] Care Teams Curtain Cleaner Relationship Specialty Start Date End Date Unknown, Notinfile PCP - General 01/19/25
--- OUTSIDE RECORDS SUMMARY | 2025-02-15 11:18 | XMS_ITS | Clinical Summary ---
Author Organization [facility] Address [address] [place] [address] Phone Care Team Providers Care Gusset Stitcher Name Role Phone Unavailable Primary Care Provider Unavailabl e Allergies No known active allergies Medications Norethindrn A-E estradiol-Iron (Blisovi 24 Fe) 1 mg-20 mcg (24)/75 mg (4) tablet Take 1 Tablet by mouth daily. 02/17/2024 Active Encounters Date Type Department Care Team Description 02/15/2025 10:30 AM CAUSTICISER Office Visit [facility] Oncology and Hematology - [place] [address] [place] [address] Bong Park MD Neutropenia, unspecified type (Primary Dx) from Last 3 Months Family History Medical History Relation Name Comments CKD Brother No Known Problems Child 1 No Known Problems Child 2 No Known Problems Father CKD Mother Diabetes Mother Relation Name Status Comments Brother Alive Child 1 Alive Child 2 Alive Father Alive Mother Alive Social History Tobacco Use Types Packs/Day Years Used Date Smoking Tobacco: Never Smokeless Tobacco: Never Alcohol Use Standard Drinks/Week Comments Yes 0 (1 standard drink = 0.6 oz pur e alcohol) Occasionally Comments Unknown Sex and Gender Information Value Date Recorded Sex Assigned at Not on file Legal Sex Female 3:33 PM CAUSTICISER Gender Identity Not on file Sexual Orientation Not on file Last Filed Vital Signs Vital Sign Reading Time Taken Comments Blood Pressure 132/86 02/15/2025 10:24 AM CAUSTICISER Pulse 79 02/15/2025 10:24 AM CAUSTICISER Temperature 36.4 C (97.6 F) 02/15/2025 10:24 AM CAUSTICISER Respiratory Rate 15 02/15/2025 10:24 AM CAUSTICISER Oxygen Saturation 98% 02/15/2025 10:24 AM CAUSTICISER Inhaled Oxygen Concentration - - Weight 62.1 kg (137 lb) 02/15/2025 10:24 AM CAUSTICISER Height 170.2 cm (5' 7) 02/15/2025 10:24 AM CAUSTICISER Body Mass Index 21.46 02/15/2025 10:24 AM CAUSTICISER Plan of Treatment Upcoming Encounters Date Type Department Care Team (Late st Contact Info) Description 03/01/2025 4:30 PM CAUSTICISER Telephone Check Up [facility] Oncology and Hematology - [place] [address] [facility] [address] [place] [address] Dagoberto Nelson MD [address] [facility] [address] [place] [address] Health Maintenance Due Date Last Done Comments DTAP/TDAP/TD VACCINES (1 - Tdap) 2007 HEPATITIS B VACCINES (1 of 3 - 19+ 3-dose series) 02/2007 HPV/Cotest (21-29) 2009 CERVICAL CANCER SCREENING 2018 HPV/Cotest (30-65) 2018 PAP SMEAR 2018 INFLUENZA VACCINE (#1) 2024 HPV VACCINES (No Doses Required) Completed
[2025-02-15 11:32] LABS: Hematocrit 36.5 % (37.0-47.0); Hemoglobin 12.2 g/dL (12.0-15.0); Immature Granulocyte Percent A 0.0 % (0-0.5); Lymphocytes Absolute Auto 1.50 K/mm3 (0.9-3.2); Mean Corpuscular HGB Conc 33.4 g/dl (32-36); Mean Corpuscular Hemoglobin 29.8 pg (26-34); Mean Corpuscular Volume 89.0 fl (80-100); Nucleated Red Blood Cells Absolute Auto 0.000 K/mm3 (0.0-0.012); Nucleated Red Blood Cells Perc 0.0 % (0.0-0.2); Platelet Count Result 194 k/mm3 (150-375); Red Blood Count 4.10 M/mm3 (4.2-5.4); White Blood Count 3.7 K/mm3 (4.5-10.0)
[2025-02-15 13:02] LABS: Iron 89 ug/dL (37-170)
[2025-02-15 13:41] LABS: Percent Iron Saturation 25 % (20-50)
[2025-02-15 13:44] LABS: Ferritin 19.50 ng/mL (6.24-137)
[2025-02-15 14:44] LABS: Vitamin B12 266.0 pg/mL (239-931)
[2025-02-18 13:08] LABS: ANA by IFA Rfx Titer/Pattern Negative (.)
== END 2025-02-15 11:01 | disposition home or self-care (01) ==
LOC: ANHLAB 11:00
PROVIDERS: Visit Provider Internal Medicine Hematology & Oncology
DX: D70.9 Neutropenia, unspecified (principal)
CPT/HCPCS: 36415; 82607; 82728; 82746; 83540; 83550; 85025; 86038